=== PATIENT | female | born 1995 | race African-American/Black ===

== ENCOUNTER 2021-09-25 12:42 | Emergency (ER) | payer OTHER ==
[~2021-09-25] VITALS: Ht 160 cm; Wt 63.5 kg
[2021-09-25 12:51] VITALS: BP 138/88
[2021-09-25] MEDS ORDERED: IBU600 MG PO (14:13)
== END 2021-09-25 14:16 | disposition home or self-care (01) ==
LOC: ER 12:42
DX: S80.12XA Contusion of left lower leg, initial encounter (principal); S80.11XA Contusion of right lower leg, initial encounter; Z88.0 Allergy status to penicillin; V89.2XXA Person injured in unspecified motor-vehicle accident, traffic, initial encounter; Y93.89 Activity, other specified; Y92.89 Other specified places as the place of occurrence of the external cause; Y99.8 Other external cause status